=== PATIENT | male | born 1995 | race Caucasian/White ===

== ENCOUNTER 2017-10-12 11:19 | Emergency (ER) | payer SELFPAY ==
[~2017-10-12] VITALS: Ht 180.3 cm; Wt 114.5 kg
[~2017-10-12 11:19] MED LIST: BACTRIM DS 8001 TAB PO; FLAGYL500 MG PO; NO HOME MEDICATIONS; NORCO 325 MG-51 TAB PO
[2017-10-12 11:33] VITALS: BP 125/68; PULSE 82; TEMP 98.6
== END 2017-10-12 13:35 | disposition home or self-care (01) ==
LOC: COL.ER 11:19
DX: R09.1 Pleurisy (principal)

== ENCOUNTER 2018-05-13 17:24 | Emergency (ER) | payer SELFPAY ==
[~2018-05-13] VITALS: Ht 180.3 cm; Wt 113.6 kg
[2018-05-13 17:31] VITALS: BP 120/56; TEMP 98.1
[2018-05-13] MEDS ORDERED: DIFLUCAN150 MG PO (18:53)
[2018-05-13] MEDS ORDERED: CEPHALEXIN500 M1 PO (18:53)
[2018-05-13 18:57] VITALS: PULSE 82
== END 2018-05-13 19:02 | disposition home or self-care (01) ==
LOC: COL.ER 17:24
DX: L01.00 Impetigo, unspecified (principal); B36.0 Pityriasis versicolor